=== PATIENT | male | born 1985 | race American Indian/Alaskan Native ===

== ENCOUNTER 2019-07-31 10:45 | Emergency (ER) | payer SELFPAY ==
[2019-07-31 10:52] VITALS: BP 125/66; PULSE 72; TEMP 98.3; BMI 25.8
--- NOTE | 2019-07-31 11:56 | PDOC ---
History of Present Illness - General Chief Complaint: Respiratory Stated Complaint: COLD SYMPTOMS/ RT LEG PAIN Time Seen by Provider: 07/31/19 11:11 History Source: Patient Exam Limitations: No Limitations Past History - Past Medical History Allergies/Adverse Reactions: Allergies Allergy/AdvReac Type Severity Reaction Status Date / Time No Known Allergies Allergy Verified 07/31/19 10:52 Home Medications: Ambulatory Orders No Home Medications 0 dose .ROUTE UTDICT 07/30/13 Ibuprofen [Motrin -] 600 mg PO TID #21 tablet 08/02/14 COPD: No - Immunization History Immunization Up to Date: Yes - Suicide/Smoking/Psychosocial Hx Smoking Status: No Smoking History: Never smoked Number of Cigarettes Smoked Daily: 0 Hx Alcohol Use: No Drug/Substance Use Hx: No Substance Use Type: None Hx Substance Use Treatment: No *Physical Exam - Vital Signs Last Vital Signs Temp Pulse Resp BP Pulse Ox 98.3 F 72 18 125/66 99 07/31/19 10:51 07/31/19 10:51 07/31/19 10:51 07/31/19 10:51 07/31/19 10:51 - Physical Exam General Appearance: No: Apparent Distress HEENT: positive: Normal Voice, TMs Normal, Pharyngeal Erythema (mild), Nasal Congestion (mild). negative: Muffled/Hoarse voice, Tonsillar Exudate, Tonsillar Erythema, Rhinorrhea, Sinus Tenderness Respiratory/Chest: positive: Lungs Clear, Normal Breath Sounds. negative: Respiratory Distress Cardiovascular: positive: Regular Rhythm, Regular Rate, S1, S2. negative: Murmur Gastrointestinal/Abdominal: positive: Normal Bowel Sounds, Soft. negative: Tender, Distended, Guarding, Rebound Integumentary: positive: Normal Color Neurologic: positive: Alert, Normal Mood/Affect Medical Decision Making - Medical Decision Making 34 y/o M with no sig pmh presents with subjective fever, productive cough with phlegm, congestion, rhinorrhea, occasional sneezing, sore throat, slight L ear pain x 3 days. [place] from [place]; last took it yesterday. Did not take anything today and has not tried and meds. Denies chills, sob, cp, abd pain, n/v, recent travel. Patient afebrile here, lungs clear Likely viral URI Stable for dc 07/31/19 11:52 *DC/Admit/Observation/Transfer Diagnosis at time of Disposition: Viral URI - Discharge Dispostion Disposition: HOME Condition at time of disposition: Stable Decision to Admit order: No - Referrals - Patient Instructions Printed Discharge Instructions: DI for Viral Upper Respiratory Infection -- Adult Additional Instructions: Thank you for choosing [facility]. It was a pleasure taking care of you. Likely you have viral infection Take Robitussin or Mucinex as needed for cough You can also use saline nasal drop or Nedi-pot to help with nasal congestion Follow-up with your doctor in 2 days Return to the Emergency Department if your symptoms worsen or persist or have other concerning symptoms. - Post Discharge Activity
== END 2019-07-31 12:02 | disposition home or self-care (01) ==
LOC: JERFT 10:45
DX: J06.9 Acute upper respiratory infection, unspecified (principal); B97.89 Other viral agents as the cause of diseases classified elsewhere
CPT/HCPCS: 99281-25

== ENCOUNTER 2022-06-06 11:28 | Emergency (ER) | payer OTHER ==
[2022-06-06 11:50] VITALS: BP 125/76; PULSE 68; TEMP 98.2; BMI 20.2
[2022-06-06] MEDS ORDERED: IBUPROFEN 600 MG TABLET (FP) PO ONE ×2 (12:44→12:59)
== END 2022-06-06 13:16 | disposition home or self-care (01) ==
LOC: JERFT 11:28
DX: S50.02XA Contusion of left elbow, initial encounter (principal)
CPT/HCPCS: 73070-TC-LT-FY; 99284-25